=== PATIENT | male | born 1950 | race Caucasian/White ===

== ENCOUNTER 2016-12-16 01:01 | Day surgery (SDC) | payer MEDICARE ==
[2016-12-16] VITALS (18 sets, daily range): BP systolic 107–171; BP diastolic 43–79; PULSE 67–83; RESP 13–21; O2SAT 94–99
[~2016-12-16] VITALS: Ht 175.3 cm; Wt 108.6 kg
[~2016-12-16 01:01] MED LIST: ASPI-973 PO; METF1000 PO; METO-272 PO; NITR0.4T SL
[2016-12-16] MEDS ORDERED: 0.9% Sodium Chloride 1,000 ML IV ONE (07:25)
[2016-12-16 07:37] LABS: BASOPHILS % (AUTO) 0.8 % (0-3); EOSINOPHILS % (AUTO) 1.8 % (0-5); MONOCYTES % (AUTO) 10.8 % (4-12); Mean Corpuscular Hemoglobin 30.1 pg (27.0-35.0); Mean Corpuscular Volume 92.2 fL (81-100); NEUTROPHILS % (AUTO) 48.6 % (40-74); Platelet Count 274 bil/L (150-400)
[2016-12-16 07:42] LABS: INR 0.97 ratio
[2016-12-16] MEDS: 0.9% Sodium Chloride 1,000 ML IV SCH ×2 (07:44→16:41)
[2016-12-16] MEDS ORDERED: GLIM2TAB2 PO (07:53)
[2016-12-16] MEDS ORDERED: Heparin 1,000 Unit/mL 10 mL Inj ONE ×2 (08:15→09:30)
[2016-12-16] MEDS ORDERED: Heparin 1,000 Units/500 mL NS Premix IV ONE (08:15)
[2016-12-16] MEDS ORDERED: 0.9% Sodium Chloride 1,000 ML ONE (08:15)
[2016-12-16] MEDS: Sodium Chloride LOK Flush 10 mL Syringe IVFLUSH SCH ×2 (08:30→20:51)
[2016-12-16] MEDS ORDERED: Insulin Human REGular-Omnicell 100 Unit/mL SUBQ ONE (08:35)
--- NOTE | 2016-12-16 08:47 | NUR ---
Admitted for a heart cath today by Dr Cárdenas for ongoing Left sided chest pain relieved by sublingual nitro. Previous HX of 3 coronary stents placed in 2006. NSR this AM with no active chest pain. Admit glucose 283 on bedside monitor and 353 by serum blood draw. Dr Cárdenas notified of blood sugars - orders for 5 Units of Regular insulin given prior to going to labor supervisor.
[2016-12-16] MEDS ORDERED: fentaNYL-PF 50 mCg/mL 2 mL Inj ONE (08:51)
[2016-12-16] MEDS ORDERED: Nitroglycerin 50,000 mcg/250 mL D5W Premix IV ONE (09:30)
--- NOTE | 2016-12-16 10:19 | DI95 ---
[address] [address] INTERVENTIONAL CARDIAC CATHETERIZATION PATIENT: ABDULAZIZ PILLAI : 1950 MR#: [id number] ADMIT: 12/16/2016 JOB ID: [id number] DATE: 12/16/2016 PROCEDURE: Percutaneous intervention on the LAD. INDICATION: Recurrent angina, in-stent restenosis. PROCEDURAL DETAILS: The reader and the coders are referred to the procedure log which enumerates complete details. Briefly it was done via right femoral approach using a 6-[place] sheath. A water guide was used and a Run-through wire. INTERVENTIONAL DETAILS: The lesion was crossed with a Run-through wire. The distal and the proximal LAD lesions were pretreated with balloon angioplasty following that. A 2.75 x 23 mm stent was deployed at the distal LAD and a 3.0 x 23 in the mid to proximal LAD. Both stents were delivered at 18 atmospheres with excellent angiographic results. The patient is advised to stay on dual antiplatelet therapy. Prior to the procedure, myself and Dr. Cárdenas both had a chat with the patient. He promised to not interrupt his dual antiplatelet therapy as well as he promised to be compliant with his diabetic medications and work towards becoming a nonsmoker.
--- NOTE | 2016-12-16 10:40 | NUR ---
Pt c/o epigastric burning.Dr Cárdenas informed, 12 lead EKG in progress. EKG uneventful, patient may have maalox for epigastric burning. Handoff to Demetrai Gillis R.N. who will follow patient until his admitting nurse Angela Shaffer R.N. can resume care of patient.
[2016-12-16] MEDS ORDERED: Insulin Human REGular-Omnicell 100 Unit/mL ONE (13:15)
--- NOTE | 2016-12-16 14:03 | NUR ---
Recovery post heart cath and stent placement completed. 4 hour recovery post manual hold. No further pain complaints, except his back from laying in bed. NSR no ectopy. Patient and patient's , "Caroline" understand plan of care.
--- NOTE | 2016-12-16 15:10 | NUR ---
Transfer report given to Arsenio GALINDO for room 2005. No change in patient Right femoral arterial access site - area is soft and non-tender. NSR no ectopy. Plan for overnight stay with D/C planned for 12/17/16.
--- NOTE | 2016-12-16 15:37 | NUR ---
SRAVANI to [facility] Pt arrive via wheelchair with and Angela GALINDO. Report taken from Angela. Pt able to ambulate to chair and to wheelchair. Pt able to transfer from wheelchair to bed without incident. Addendum: 12/16/16 at 1642 by MADAN PAGAN RN Bilateral pulses palpable. No sign of hematoma or bleeding.
--- NOTE | 2016-12-16 16:42 | NUR ---
Ambulation Pt ambulated around whole unit without SOB. Pt stated he was unable to even walk a few steps without left arm hurting and SOB prior to re-stenting. Pt tolerated walking. Educated pt on taking antiplatelets. Care continues.
[2016-12-16] MEDS: Insulin Human REGular 300 Unit/3 mL Inj - Low SUBQ SCH (20:51)
--- NOTE | 2016-12-16 22:16 | CS94 ---
[address] [address] DIAGNOSTIC CARDIAC CATHETERIZATION PATIENT: ABDULAZIZ PILLAI : 1950 MR#: [id number] ADMIT: 12/16/2016 JOB ID: [id number] SERVICE DATE: 12/16/2016 PROCEDURE: 1. Retrograde left heart catheterization. 2. Selective left and right coronary angiography. CLINICAL INDICATION: The patient has known history of coronary artery disease, diabetes, hypertension and hyperlipidemia. The patient had an angioplasty done in 2006 at [facility]. The patient came to the office as a new consult with symptoms of left lateral chest wall pain, brought on with exertion, relieved with rest, associated with symptoms of dizziness and shortness of breath. CONSENT: The patient was explained the risks, benefits, and alternatives of the procedure and informed signed consent was obtained and placed in the chart. DESCRIPTION OF PROCEDURE: The patient was brought to the cath laboratory and placed on the cath table. Procedural sedation was administered by the nurse present in the laboratory chief. Please see the event log. Using a modified Seldinger technique, a 6-Cuban arterial sheath was placed in the right femoral artery with no difficulty. Topical anesthesia was used prior to the placement of the right femoral sheath. An FL4 catheter was used to engage the left main coronary artery and multiple views of the left coronary artery were obtained in multiple projections. Similarly, FR4 catheter was advanced over the guidewire and placed in the left ventricle and right coronary angiography was performed. Subsequently, a pigtail catheter was advanced over the guidewire and placed in the left ventricle. Left ventricular hemodynamics was obtained. Left ventricular cineangiography was not performed. A pullback maneuver was performed to assess for any left ventricular aortic gradient. The care of the patient was subsequently transferred to Dr. Kee for the percutaneous intervention. FINDINGS: The left ventricular end-diastolic pressure was 18-22 mmHg. The left main coronary artery is free of any significant disease. It bifurcates into left anterior descending artery and left circumflex coronary artery. The left anterior descending coronary artery has a high diagonal branch. The proximal LAD demonstrates a in-stent restenosis. The degree of stenosis is high-grade. The mid LAD also demonstrates a tubular stenosis of 80% to 90% (in-stent restenosis). The left circumflex coronary artery is mildly diffusely diseased with a mild tubular stenosis noted in the mid segment. The first obtuse marginal branch is a small branch vessel with mild luminal irregularities. The distal left circumflex continues as a large obtuse marginal branch which demonstrates diffuse disease. Xjes-cb-hepa collaterals were noted. The right coronary artery demonstrates diffuse luminal irregularities. The proximal right coronary artery has a widely patent stent. Olmce-jb-wscu collaterals were noted, filling the distal LAD as well. IMPRESSION: 1. High-grade in-stent stenosis in the proximal and mid left anterior descending. 2. Mild diffuse disease in the left circumflex. 3. Widely patent stent in the proximal right coronary artery with mature jyqkd-kd-ecnx collaterals and idkm-we-zzao collaterals were visualized. The care of the patient was transferred over to Dr. Kee for urgent angioplasty to the proximal and mid LAD (in-stent restenosis). MARIEL
--- NOTE | 2016-12-17 02:30 | NUR ---
Groin site/ Tele Rt groin puncture site CDI, no pain swelling or discharge, no signs of hematoma , bio-occlusive dressing in place . Pt states he feels better, is breathing better than prior to stenting. VS within base for pt, neuro checks unremarkable, all peripheral pulses easily palpable . Feeling in all extremities. Room Air, Saline locked , independent in room , A&O x3 using call light appropriately. Tele SR 75
[2016-12-17] MEDS: Insulin Human REGular 300 Unit/3 mL Inj - Low SUBQ SCH ×2 (02:43→08:30)
[2016-12-17] MEDS: Sodium Chloride LOK Flush 10 mL Syringe IVFLUSH SCH ×2 (02:44→08:40)
[2016-12-17] MEDS: 0.9% Sodium Chloride 1,000 ML IV SCH (02:45)
[2016-12-17 02:57] VITALS: BP 144/74; PULSE 65; RESP 20; O2SAT 96
[2016-12-17 05:07] VITALS: PULSE 76
[2016-12-17] MEDS ORDERED: Pantoprazole 40 mg ER24 Tablet PO SCH (06:30)
[2016-12-17] MEDS ORDERED: CLOP75TA28 PO (07:00)
[2016-12-17] MEDS ORDERED: LIP40 PO (07:00)
--- NOTE | 2016-12-17 07:03 | PCM.DIMED ---
Discharge Instructions Date of Service Dec 17, 2016 Dates of Hospitalization 12/16/2016 Discharge Diagnosis Discharge Diagnosis CAD Diet Heart Healthy, Diabetic Activity Limited until seen by PCP, Other (Wash incision with mild soap and warm water) Call your provider Fever or Chills, Shortness of breath, Bleeding, Chest pain, Other (Signs of infection at the incision site.) Patient Instructions Mid-level Provider (F9): Inocencio Cantu PA-C Follow-up with Mid-level in: 1 week Inocencio Cantu PA-C Dec 17, 2016 07:03
--- NOTE | 2016-12-17 07:54 | PCM.DIMED ---
Discharge Instructions Date of Service Dec 17, 2016 Dates of Hospitalization Discharge Diagnosis Discharge Diagnosis CAD Diet Heart Healthy, Diabetic Activity Limited until seen by PCP, Other (Wash incision with mild soap and warm water) Call your provider Fever or Chills, Shortness of breath, Bleeding, Chest pain, Other (Signs of infection at the incision site.) Patient Instructions Mid-level Provider (F9): Inocencio Cantu PA-C Follow-up with Mid-level in: 1 week Attending's Statement Start glyburide today. Begin taking Metformin in 48 hours. Inocencio Cantu PA-C Dec 17, 2016 07:54
[2016-12-17 08:01] VITALS: PULSE 89
[2016-12-17 08:15] VITALS: BP 125/79; PULSE 78; RESP 18; O2SAT 97
[2016-12-17] MEDS ORDERED: MeTOProlol XL 50 mg ER24 Tablet PO SCH (08:40)
--- NOTE | 2016-12-17 09:26 | NUR ---
Groin/Tele Pt right groin site CDI. Pt states no pain on palp. No hematoma, slight bruising. Pt ambulating in room. Tele SR 70s. Care continues.
--- NOTE | 2016-12-17 10:56 | NUR ---
Discharge Pt discharged at approximately 1057 to home with . Pt given Angioplasty & Stent booklet, educational material for Stents, Plavix and atorvastatin. Next dose to be taken clearly written and dated, education regarding groin care and limitations, new prescriptions for Plavix and Atorvastatin. Pt IV DC'd with catheter in place, tele DC'd low voltage technician notified. Patient left with all personal belongings. Escorted by SPORTS MEDICINE SPECIALIST to the door via wheelchair. transporting home.
--- NOTE | 2016-12-18 16:13 | DIS ---
[address] [address] DISCHARGE SUMMARY PATIENT: ABDULAZIZ PILLAI : 1950 MR#: [id number] ADMIT: 12/16/2016 JOB ID: [id number] DIS: 12/17/2016 PROCEDURES: 1. Retrograde left heart catheterization. 2. Selective left and right coronary angiography. 3. Placement of a drug-eluting stent in the mid and proximal left anterior descending artery of the heart. FINDINGS: 1. High-grade in-stent stenosis in the proximal and mid left anterior descending artery. 2. Mid diffuse disease in the left circumflex artery. 3. Widely patent stent in the proximal right coronary artery with mature yjzku-bt-lpew collaterals and mfkx-az-xzgu collaterals were also visualized. BRIEF HISTORY: The patient had a known history of coronary artery disease, diabetes, hypertension, and hyperlipidemia. He had an angioplasty done in 2006 at [facility] in [place], [place]. Patient came to our office at [facility] as a new consult with symptoms of left lateral chest wall pain brought on with exertion, relieved with rest, and associated with symptoms of dizziness and shortness of breath. HOSPITAL COURSE: As such, the patient was scheduled for the asphalt plant laborer at [facility] where the above-mentioned procedures were carried out. There were no complications. Afterwards, he was admitted to the [facility] for observation where he did well. He spent the night in the hospital. At discharge, his vitals were stable. Right groin catheter entry site was clean, dry, intact without signs of infection. There were good dorsalis pedis and posterior tibialis pulses bilaterally in both lower extremities. MEDICATIONS: 1. Atorvastatin 40 mg daily. 2. Clopidogrel 75 mg daily. 3. Aspirin 81 mg daily. 4. Glimepiride 2 mg daily. 5. Metformin 1000 mg twice a day. 6. Metoprolol succinate 50 mg daily. 7. Nitroglycerin sublingual tablets 0.4 mg every 5 minutes as needed for chest pain, up to three. DISPOSITION/DISCHARGE INSTRUCTIONS: The patient was discharged to his home and placed under the care of his family and friends with the following instructions: 1. Eat a heart healthy and diabetic friendly diet. 2. Limit your activity until you have a followup appointment at [facility]. 3. Wash the incision site with mild soap and warm water. Do not submerge the incision. 4. Call your provider if you feel fever, chills, shortness of breath, bleeding, chest pain or signs of infection at the incision site. 5. Start your glyburide today. 6. Begin taking metformin 48 hours after discharge. MTDD
== END 2016-12-17 10:53 | disposition home or self-care (01) ==
LOC: SOUO 01:01 → PCC 14:30 → SOUO 12-17 10:53
PROVIDERS: ATTEND Internal Medicine Cardiovascular Disease
DX: T82.855A Stenosis of coronary artery stent, initial encounter (principal); I25.119 Atherosclerotic heart disease of native coronary artery with unspecified angina pectoris; Z95.5 Presence of coronary angioplasty implant and graft; E11.9 Type 2 diabetes mellitus without complications; Z79.84 Long term (current) use of oral hypoglycemic drugs; F17.210 Nicotine dependence, cigarettes, uncomplicated; Y84.8 Other medical procedures as the cause of abnormal reaction of the patient, or of later complication, without mention of misadventure at the time of the procedure; Z79.82 Long term (current) use of aspirin
CPT/HCPCS: 36415; 80048; 83036; 85025; 85610; 93005; 93458; 99152; 99153; C1725; C1769; C1874; C1887; C9600; J1644; J1815; J2250; J3010; J7030; Q9967